=== PATIENT | male | born 1980 | race Caucasian/White ===

== ENCOUNTER 2020-07-07 09:46 | Emergency (ER) | payer OTHER, SELFPAY ==
[2020-07-07 10:00] VITALS: BP 161/92; PULSE 91; RESP 16; TEMP 36.3; O2SAT 99
--- NOTE | 2020-07-07 10:09 | ED_ITS ---
HPI - Skin/Abscess/Foreign Bdy General Chief complaint: Allergic Reaction Stated complaint: bee stings Source: patient and RN notes reviewed Limitations: no limitations History of Present Illness HPI narrative: The patient, previously mostly healthy on BP meds, presents with posttraumatic wound check/insect bites. Patient states while at work he got stung multiple times on the face by a ground wasps [by upper lip, nose, forehead]. Complains of initially mild shakiness which is improved; no cough, wheezing/sneezing, shortness of breath, intraoral edema. Symptoms are mild to moderate; he has only mild insect/bite reactions in the past. Related Data Home Medications Medication Instructions Recorded Confirmed lisinopril 40 mg PO DAILY 07/07/20 07/07/20 metoprolol succinate 25 mg PO DAILY 07/07/20 07/07/20 Allergies Allergy/AdvReac Type Severity Reaction Status Date / Time tetracycline Allergy Unknown Unknown Verified 07/07/20 09:58 Review of Systems Review of Systems: Narrative: General/Constitutional: No weight loss,fever Eyes: N0: Redness,discharge Ears/Nose/Throat: No: Epistaxis,ear discharge Respiratory: Denies: Hemoptysis Gastrointestinal: No Vomiting, Bleeding-rectal Skin: No Lumps, REPORTS eruption Neurologic: No Focal Weakness,Sz PMFSH Comments At time of signature, agree with nursing past medical, surgical, social and family history. There is no relevant family history pertinent to the presenting complaint Exam Narrative: Exam Narrative: General Appearance: Well appearing, Conjunctiva clear Ears: External ear normal Skin: Warm, Dry, mild localized swelling to left nose and upper lip Nose: Normal nose Mouth/Throat: Normal appearing, Normal lips w/o angioedema, Supple Respiratory: Airway patent, No respiratory distress Cardiovascular: RRR Neurological: A&O x3, Normal affect Course Vital Signs Vital signs: Vital Signs Temperature 97.4 F L 07/07/20 10:00 Pulse Rate 91 07/07/20 10:00 Respiratory Rate 16 07/07/20 10:00 Blood Pressure 161/92 H 07/07/20 10:00 Pulse Oximetry 99 07/07/20 10:00 Temperature 97.4 F L 07/07/20 10:00 Pulse Rate 91 07/07/20 10:00 Respiratory Rate 16 07/07/20 10:00 Blood Pressure 161/92 H 07/07/20 10:00 Pulse Oximetry 99 07/07/20 10:00 Discharge Plan Discharge Clinical Impression: Encounter for post-traumatic wound check, History of insect bite Patient Disposition: Home, Self-Care Condition: Stable Instructions: Insect Bite or Sting (ED) Prescriptions: New loratadine 10 mg tablet 10 mg PO DAILY PRN (Reason: allergy symptoms) Qty: 10 RF: 0 hydrocortisone [Anti-Itch (HC)] 1 % cream 1 applic topical TID PRN (Reason: itching) Qty: 14.2 RF: 0 No Action metoprolol succinate 25 mg Tablet Extended Release 24 Hr 25 mg PO DAILY RF: 0 lisinopril 40 mg Tablet 40 mg PO DAILY RF: 0 Follow-up/Referrals: PHYSICIAN,[employer] [Primary Care Provider] - Stand Alone Forms: Work/School Release IP
[2020-07-07] MEDS: diphenhydrAMINE HCl CAP 25 MG CAPSULE PO (10:12)
== END 2020-07-07 10:30 | disposition home or self-care (01) ==
PROVIDERS: Emergency Provider Emergency Medicine
DX: T63.441A Toxic effect of venom of bees, accidental (unintentional), initial encounter (principal); I10 Essential (primary) hypertension
CPT/HCPCS: 99213; A9270; G0463